=== PATIENT | female | born 1955 | race Caucasian/White ===

== ENCOUNTER 2018-03-06 12:35 | Emergency (ER) | payer MEDICARE, OTHER ==
[~2018-03-06] VITALS: Ht 154.9 cm; Wt 56.8 kg
[2018-03-06] MEDS ORDERED: METH10 PO (12:50)
[2018-03-06] MEDS ORDERED: TRAZ-147 PO (12:50)
[2018-03-06] MEDS ORDERED: TRIH2TAB3 PO (12:50)
[2018-03-06] MEDS ORDERED: ZOLP10TA7 PO (12:50)
[2018-03-06] MEDS ORDERED: QUET200XR PO (12:50)
[2018-03-06 13:20] VITALS: BP 140/77
[2018-03-06 13:55] LABS: EOSINOPHILS % (AUTO) 1.4 % (1.0-6.0); HEMATOCRIT 34.1 % (36-46); HEMOGLOBIN 11.6 g/dL (12.0-16.0); LYMPHOCYTES # (AUTO) 1.5 K/uL (1.0-4.8); LYMPHOCYTES % (AUTO) 21.7 % (22.0-44.0); MEAN CORPUSCULAR HGB CONC 34.1 G/dL (31.0-37.0); MEAN CORPUSCULAR VOLUME 85 fL (80-100); MONOCYTES # (AUTO) 0.3 K/uL (0.1-1.0); MONOCYTES % (AUTO) 4.5 % (2.0-9.0); NEUTROPHILS # (AUTO) 4.8 K/uL (1.8-7.7); NEUTROPHILS % (AUTO) 71.4 % (40.0-70.0); PLATELET COUNT (AUTO) 146 K/uL (150-450); RED BLOOD CELL COUNT(AUTO) 4.02 MIL/uL (4.00-5.20)
[2018-03-06 14:16] LABS: ANION GAP 4 mmol/L (8-16); CALCIUM, TOTAL 8.9 mg/dL (8.8-10.5); CARBON DIOXIDE 32 mmol/L (22-29); CHLORIDE 98 mmol/L (98-107); CREATININE 0.86 mg/dL (0.60-1.30); GLOMERULAR FILTR. RATE CALC > 60 mL/min (>60); GLUCOSE,RANDOM 62 mg/dL (70-110); POTASSIUM 3.5 mmol/L (3.5-5.1); SODIUM SERUM 134 mmol/L (136-145); UREA NITROGEN, BLOOD 19 mg/dL (7-18)
[2018-03-06 14:22] LABS: ALANINE AMINOTRANSFERASE 20 U/L (12-78); ALBUMIN 4.1 g/dL (3.4-5.0); ALKALINE PHOSPHATASE 48 U/L (46-116); ASPARTATE AMINOTRANSFERASE 20 U/L (15-37); BILIRUBIN,TOTAL 0.6 mg/dL (0.1-1.0); TOTAL PROTEIN, SERUM 7.5 g/dL (6.4-8.2)
[2018-03-06 14:25] LABS: AMPHET/METH SCREEN,URINE NEGATIVE (NEGATIVE); BARBITURATE SCREEN, URINE NEGATIVE (NEGATIVE); BENZODIAZEPINES SCREEN,URINE NEGATIVE (NEGATIVE); CANNABINOID SCREEN,URINE NEGATIVE (NEGATIVE); COCAINE SCREEN,URINE NEGATIVE (NEGATIVE); METHADONE SCREEN, URINE POSITIVE (NEGATIVE)
[2018-03-06 14:26] LABS: PHENCYCLIDINE SCREEN,URINE NEGATIVE (NEGATIVE)
[2018-03-06 14:31] LABS: APPEARANCE,URINE CLOUDY (CLEAR); BILIRUBIN,URINE NEGATIVE (NEGATIVE); GLUCOSE, URINE (UA) NEGATIVE (NEGATIVE); KETONES,URINE NEGATIVE (NEGATIVE); LEUKOCYTE ESTERASE ,URINE LARGE (NEGATIVE); NITRATE,URINE NEGATIVE (NEGATIVE); OCCULT BLOOD,URINE NEGATIVE (NEGATIVE); PROTEIN,URINE NEGATIVE (NEGATIVE); UROBILINOGEN,URINE 0.2 mg/dL (<=1.0)
[2018-03-06 14:41] LABS: RBC,URINE 0-2 /HPF (0-2)
[2018-03-06 14:42] LABS: BACTERIA,URINE None Seen /HPF (None Seen); RENAL EPITHELIAL CELLS,URINE Rare /LPF (None Seen); SQUAMOUS EPITHELIAL CELL,UR Few /LPF (None Seen)
[2018-03-06 16:00] LABS: OPIATE SCREEN,URINE NEGATIVE (NEGATIVE)
== END 2018-03-06 15:17 | disposition home or self-care (01) ==
LOC: EEVIPCON 12:36 → EMS 12:36
DX: F20.9 Schizophrenia, unspecified (principal); F41.9 Anxiety disorder, unspecified
CPT/HCPCS: 36415; 80053; 80307; 81001; 85025; 87086; 99284; G0480